=== PATIENT | male | born 1965 | race Caucasian/White ===

== ENCOUNTER 2023-08-21 06:00 | Observation (INO) ==
[~2023-08-21 06:00] MED LIST: NS 0.45% 1000 ml BAG 1,000 ML IV SCH; Naloxone 0.4 mg VIAL 0.4 mg/ml 1 ml VIAL IV PRN; Ondansetron 4 mg VIAL 2 MG/ML 2 ml VIAL IV PRN
[2023-08-21] MEDS ORDERED: fentaNYL 250 mcg/5 ml 50 MCG/ML 5 ml VIAL (250 MCG) ONE (06:25)
[2023-08-21] MEDS ORDERED: Propofol 10 MG/ML 20 ML BTL ONE (06:25)
[2023-08-21] MEDS ORDERED: Midazolam 2 mg/2 ml VIAL 1 mg/ml 2 ml VIAL (2 mg) ONE (06:25)
[2023-08-21] MEDS ORDERED: Rocuronium 50 mg VIAL 10 mg/ml 5 ml VIAL (50 mg) ONE ×2 (06:25→08:35)
[2023-08-21] MEDS ORDERED: Lidocaine 2% PF 5 ML VIAL ONE (06:25)
[2023-08-21] MEDS ORDERED: Scopolamine 1 mg/72hr PATCH ONE (06:39)
[2023-08-21] MEDS ORDERED: ceFAZolin 2 GM in NS PREMIX 2 GM/100 ML BAG IVPB ONE (06:40)
[2023-08-21] MEDS ORDERED: Vancomycin 1,000 MG VIAL ONE (06:55)
[2023-08-21 07:09] LABS: Rapid COVID-19 Molecular Undetected (Undetected)
[2023-08-21] MEDS ORDERED: fentaNYL 100 mcg/2 ml 50 MCG/ML VIAL ONE ×3 (07:13→12:17)
[2023-08-21] MEDS ORDERED: Midazolam 5 mg/5 ml VIAL 1 mg/ml 5 ml VIAL (5 mg) ONE (07:13)
[2023-08-21] MEDS ORDERED: ROPIVACAINE 5 MG/ML 30 ML BTL (0.5%) ONE (07:13)
[2023-08-21] MEDS ORDERED: Tranexamic Acid 1 GM/100ML BAG 2,000 MG/200 ML BAG IV ONE (07:21)
[2023-08-21] MEDS ORDERED: Ondansetron 4 mg VIAL 2 MG/ML 2 ml VIAL ONE (08:16)
[2023-08-21] MEDS ORDERED: Dexamethasone IV 4 MG/ML VIAL 1 ml VIAL ONE (08:16)
[2023-08-21] MEDS ORDERED: Tranexamic Acid 1,000 MG/10 ML SDV ONE (08:35)
[2023-08-21] MEDS ORDERED: Calcium Carb (TUMS) 500 mg CHEW TAB PO PRN (12:06)
[2023-08-21] MEDS ORDERED: Magnesium Hydroxide LIQ 30 ML UDC PO PRN (12:06)
[2023-08-21] MEDS ORDERED: Ondansetron 4 mg VIAL 2 MG/ML 2 ml VIAL IV PRN (12:06)
[2023-08-21] MEDS ORDERED: Ondansetron ODT 4 mg TAB 4 MG TAB PO PRN (12:06)
[2023-08-21] MEDS ORDERED: Lactulose 30 ml UDC PO PRN (12:06)
[2023-08-21] MEDS: fentaNYL 100 mcg/2 ml 50 MCG/ML VIAL IV PRN (12:20)
[2023-08-21] MEDS: Lactated Ringers 1000 ml BAG 1,000 ML IV SCH ×2 (13:45→15:39)
[2023-08-21] MEDS: Morphine 2 MG/ML SYRINGE IV PRN (14:17)
[2023-08-21] MEDS: Scopolamine 1 mg/72hr PATCH TRANSDERM ONE (15:39)
[2023-08-21] MEDS: Buffered Lidocaine 1% SYRIN 1 ml INTRADERM ONE (15:41)
[2023-08-21] MEDS: Acetaminophen IV 1 GM/100ML 1,000 MG/100 ML BAG IV ONE (15:41)
[2023-08-21] MEDS ORDERED: ceFAZolin 2 GM in NS PREMIX 2 GM/100 ML BAG IVPB SCH (16:15)
[2023-08-21] MEDS: ceFAZolin 2 GM PREMIX 2 GM/50 ML BAG IV SCH (18:50)
[2023-08-21] MEDS: Magnesium Hydroxide LIQ 30 ML UDC PO SCH (19:41)
[2023-08-22 06:14] LABS: Hematocrit 38.6 % (38-53); Mean Platelet Volume 8.4 fL (7.5-11.2); Platelet Count 232 10^3/uL (150-450)
[2023-08-22 06:36] LABS: Calcium 8.7 mg/dL (8.6-10.3); Creatinine, Serum 0.93 mg/dL (0.67-1.17); Potassium 4.2 mmol/L (3.5-5.0); eGFR CKD-EPI 94.6 (>60)
[2023-08-22] MEDS: Vitamin THERAPEUTIC TAB PO SCH (08:59)
== END 2023-08-22 14:20 | disposition home or self-care (01) ==
LOC: OR 06:00 → SSU 06:00
PROVIDERS: ADMIT Orthopaedic Surgery; ATTEND Orthopaedic Surgery